=== PATIENT | male | born 1990 | race Caucasian/White ===

== ENCOUNTER 2017-01-01 15:59 | Emergency (ER) | payer SELFPAY ==
[~2017-01-01] VITALS: Ht 188 cm; Wt 75.0 kg
[2017-01-01 16:00] VITALS: BP 141/78; PULSE 104; RESP 15; TEMP 98.2; O2SAT 98
--- NOTE | 2017-01-01 16:17 | PD ---
HPI Chief Complaint: Psychiatric Symptoms Time Seen by Provider: 16:17 Travel History International Travel<30 days: No Contact w/Intl Traveler<30days: No Traveled to known affect area: No History of Present Illness HPI 26-year-old [place] Citizen male presents the emergency department with psychiatric symptoms. Patient arrives with his mother. Patient has a history of schizophrenia, and he is supposed be taking Remeron, Prozac, and Xanax. His mother states it is been noticed that he has not been taking his meds for the past week. Patient admits to hearing voices in his head. He denies any other specific complaints other than generalized muscle aches and pains. She has not been eating or sleeping according to his mother. He has no known drug allergies. PFSH Past Medical History Psychiatric: Yes Social History Alcohol Use: No Tobacco Use: No Substance Use: No Allergies-Medications (Allergen,Severity, Reaction): Coded Allergies: No Known Allergies (Unverified , 01/01/17) Reported Meds & Prescriptions Reported Meds & Active Scripts Active Reported Prozac (Fluoxetine HCl) 20 Mg Cap 20 Mg PO DAILY Xanax (Alprazolam) 1 Mg Tab 1 Mg PO Q6H PRN Seroquel (Quetiapine Fumarate) 100 Mg Tab 100 Mg PO BID Review of Systems ROS Limitations: Psychotic Except as stated in HPI: all other systems reviewed are Neg General / Constitutional: No: Fever Eyes: No: Visual changes HENT: No: Headaches Cardiovascular: No: Chest Pain or Discomfort Respiratory: No: Shortness of Breath Gastrointestinal: No: Abdominal Pain Genitourinary: No: Dysuria Musculoskeletal: No: Pain Skin: No Rash Neurologic: No: Weakness Psychiatric: No: Depression Endocrine: No: Polydipsia Hematologic/Lymphatic: No: Easy Bruising Physical Exam Exam Limitations: Psychotic Narrative GENERAL: Patient has poor eye contact, but is cooperative and directable. SKIN: Warm and dry. Normal color. Normal turgor. HEAD: Atraumatic. Normocephalic. EYES: Pupils equal and round. No scleral icterus. No injection or drainage. ENT: No nasal bleeding or discharge. Mucous membranes pink and moist. Pharynx is normal. Patient is noted to have poor dental health with tenderness on the right #32 tooth. No abscess noted. NECK: Trachea midline. Neck supple nontender. CARDIOVASCULAR: Regular rate and rhythm. RESPIRATORY: No accessory muscle use. Clear to auscultation. Breath sounds equal bilaterally. MUSCULOSKELETAL: Extremities without clubbing, cyanosis, or edema. No obvious deformities. NEUROLOGICAL: Awake and alert. No obvious cranial nerve deficits. Motor grossly within normal limits. Five out of 5 muscle strength in the arms and legs. Normal speech. PSYCHIATRIC: Appropriate mood and affect; insight and judgment normal. Data Data Last Documented VS Vital Signs Date Time Temp Pulse Resp B/P Pulse Ox O2 Delivery O2 Flow Rate FiO2 01/01/17 17:10 78 20 01/01/17 16:00 98.2 141/78 98 Orders Complete Blood Count With Diff (01/01/17 16:22) Comprehensive Metabolic Panel (01/01/17 16:22) Urinalysis - C+S If Indicated (01/01/17 16:22) Psych Screen (01/01/17 16:22) Drug Screen, Random Urine (01/01/17 16:22) Alcohol (Ethanol) (01/01/17 16:22) Lorazepam (Ativan) (01/01/17 16:30) Diet Regular Basic (01/01/17 Lunch) Chest, Single Ap (01/01/17 ) Amoxicil-Clavulanate (Augmentin) (01/01/17 18:30) Ibuprofen (Motrin) (01/01/17 18:30) Labs Laboratory Tests Test 01/01/17 01/01/17 16:40 16:45 White Blood Count 21.6 TH/MM3 Red Blood Count 4.45 MIL/MM3 Hemoglobin 13.7 GM/DL Hematocrit 40.7 % Mean Corpuscular Volume 91.5 FL Mean Corpuscular Hemoglobin 30.8 PG Mean Corpuscular Hemoglobin 33.7 % Concent Red Cell Distribution Width 13.5 % Platelet Count 275 TH/MM3 Mean Platelet Volume 8.5 FL Neutrophils (%) (Auto) 88.8 % Lymphocytes (%) (Auto) 4.1 % Monocytes (%) (Auto) 6.1 % Eosinophils (%) (Auto) 0.3 % Basophils (%) (Auto) 0.7 % Neutrophils # (Auto) 19.2 TH/MM3 Lymphocytes # (Auto) 0.9 TH/MM3 Monocytes # (Auto) 1.3 TH/MM3 Eosinophils # (Auto) 0.1 TH/MM3 Basophils # (Auto) 0.2 TH/MM3 CBC Comment DIFF FINAL Differential Comment Sodium Level 138 MEQ/L Potassium Level 4.1 MEQ/L Chloride Level 99 MEQ/L Carbon Dioxide Level 26.9 MEQ/L Anion Gap 12 MEQ/L Blood Urea Nitrogen 13 MG/DL Creatinine 1.28 MG/DL Estimat Glomerular Filtration 68 ML/MIN Rate Random Glucose 89 MG/DL Calcium Level 8.6 MG/DL Total Bilirubin 0.6 MG/DL Aspartate Amino Transf 21 U/L (AST/SGOT) Alanine Aminotransferase 21 U/L (ALT/SGPT) Alkaline Phosphatase 83 U/L Total Protein 7.7 GM/DL Albumin 4.1 GM/DL Ethyl Alcohol Level LESS THAN 3 MG/DL Urine Color YELLOW Urine Turbidity CLEAR Urine pH 6.0 Urine Specific [place] 1.016 Urine Protein TRACE mg/dL Urine Glucose (UA) NEG mg/dL Urine Ketones 40 mg/dL Urine Occult Blood NEG Urine Nitrite NEG Urine Bilirubin NEG Urine Urobilinogen 2.0 MG/DL Urine Leukocyte Esterase NEG Urine RBC 1 /hpf Urine WBC 1 /hpf Urine Hyaline Casts 1 /lpf Urine Mucus FEW /lpf Microscopic Urinalysis Comment CULT NOT INDICATED Urine Opiates Screen NEG Urine Barbiturates Screen NEG Urine Amphetamines Screen NEG Urine Benzodiazepines Screen NEG Urine Cocaine Screen NEG Urine Cannabinoids Screen POS MDM Medical Decision Making Medical Screen Exam Complete: Yes Emergency Medical Condition: Yes Differential Diagnosis Psychiatric symptoms. Noncompliance with medication. Auditory hallucinations. Narrative Course Patient is medically stable at time of exam. Psychiatric labs ordered per protocol. Meal ordered for the patient. Patient is given 1 mg lorazepam by mouth. Patient is given Augmentin 875 twice a day for 7 days. Patient is given ibuprofen 600 mg by mouth now. Patient is medically cleared for psychiatric evaluation. Diagnosis Primary Impression: Auditory hallucinations Additional Impressions: Medical clearance for psychiatric admission Dental infection Condition: Stable Enrrique Figueroa Jan 01, 2017 16:17
[2017-01-01] MEDS ORDERED: LORazepam 1 MG TAB PO ONE (16:30)
[2017-01-01 17:00] LABS: AUTOMATED NEUTROPHIL # 19.2 TH/MM3 (1.8-7.7); BASOPHIL # 0.2 TH/MM3 (0-0.2); BASOPHIL % 0.7 % (0.0-2.0); EOSINOPHIL # 0.1 TH/MM3 (0-0.4); EOSINOPHIL % 0.3 % (0.0-4.0); HEMATOCRIT 40.7 % (39.0-51.0); HEMO FLAGS DIFF FINAL; LYMPH % 4.1 % (9.0-44.0); LYMPHOCYTE # 0.9 TH/MM3 (1.0-4.8); MEAN CELL VOLUME 91.5 FL (80.0-100.0); MEAN CORPUSCULAR HEMOGLOBIN 30.8 PG (27.0-34.0); MEAN CORPUSCULAR HGB CONC 33.7 % (32.0-36.0); MONO % 6.1 % (0.0-8.0); NEUT % 88.8 % (16.0-70.0); PLATELET COUNT 275 TH/MM3 (150-450); RED BLOOD COUNT 4.45 MIL/MM3 (4.50-5.90); RED CELL DISTRIBUTION WIDTH 13.5 % (11.6-17.2); WHITE BLOOD COUNT 21.6 TH/MM3 (4.0-11.0)
[2017-01-01 17:09] LABS: BLOOD, URINE NEG (NEG); COMMENT (UR) CULT NOT INDICATED; CULTURE IF INDICATED CULT NOT INDICATED; GLUCOSE,URINE NEG (NEG); HYALINE CAST, URINE 1 /lpf (RARE); KETONE, URINE 40 mg/dL (NEG); MUCUS URINE FEW /lpf (OCC); NITRITE,URINE NEG (NEG); URINE COLOR YELLOW (YELLW/STRAW)
[2017-01-01 17:11] LABS: AMPHETAMINE, URINE NEG (NEG); BARBITURATES, URINE NEG (NEG); COCAINE, URINE NEG (NEG)
[2017-01-01 17:22] LABS: ALKALINE PHOSPHATASE 83 U/L (45-117); ALT (GPT) 21 U/L (12-78); ANION GAP 12 MEQ/L (5-15); AST (GOT) 21 U/L (15-37); BICARBONATE 26.9 MEQ/L (21.0-32.0); BLOOD UREA NITROGEN 13 MG/DL (7-18); CHLORIDE 99 MEQ/L (98-107); GLOMERULAR FILTRATION RATE 68 ML/MIN (>89); POTASSIUM 4.1 MEQ/L (3.5-5.1); SODIUM (NA) 138 MEQ/L (136-145); TOTAL BILIRUBIN ADULT 0.6 MG/DL (0.2-1.0)
[2017-01-01] MEDS ORDERED: PROZ20CA11 PO (17:56)
[2017-01-01] MEDS ORDERED: XANA1TAB2 PO (17:56)
[2017-01-01] MEDS ORDERED: SERO100T PO (17:56)
--- NOTE | 2017-01-01 18:12 | RADRPT ---
EXAM DATE/TIME: 01/01/2017 17:37 [facility] COMPARISON: No previous studies available for comparison. INDICATIONS : Palpitation MEDICAL HISTORY : None. SURGICAL HISTORY : None. ENCOUNTER: Initial ACUITY: 1 day PAIN SCORE: 0/10 LOCATION: Bilateral chest FINDINGS: A single view of the chest demonstrates the lungs to be symmetrically aerated without evidence of mas s, infiltrate or effusion. The cardiomediastinal contours are unremarkable. Osseous structures are intact. CONCLUSION: No acute disease. Jareth Hall MD on January 01, 2017 at 18:10 Board Certified Radiologist. This report was verified electronically.
[2017-01-01] MEDS ORDERED: IBUP-232 PO (18:24)
[2017-01-01] MEDS ORDERED: AUGM875T PO ×2 (18:24→19:57)
--- NOTE | 2017-01-01 18:24 | PD ---
Physical Exam Narrative General: No apparent distress, well appearing ENT: Posterior oropharyngx clear without exudate or erythema, poor dentition with pain located around tooth #32 without periapical abscess or tooth fracture ; no concurrent facial swelling or lymphadenopathy noted Neck: Neck is supple, no meningeal signs, trachea is midline Cardiovascular: Regular rate and rhythm Lungs: No increased respiratory effort noted, CTA bilaterally Neuro: Awake, motor and sensation grossly intact, normal speech Data Data Last Documented VS Vital Signs Date Time Temp Pulse Resp B/P Pulse Ox O2 Delivery O2 Flow Rate FiO2 01/01/17 17:10 78 20 01/01/17 16:00 98.2 141/78 98 Orders Complete Blood Count With Diff (01/01/17 16:22) Comprehensive Metabolic Panel (01/01/17 16:22) Urinalysis - C+S If Indicated (01/01/17 16:22) Psych Screen (01/01/17 16:22) Drug Screen, Random Urine (01/01/17 16:22) Alcohol (Ethanol) (01/01/17 16:22) Lorazepam (Ativan) (01/01/17 16:30) Diet Regular Basic (01/01/17 Lunch) Chest, Single Ap (01/01/17 ) Amoxicil-Clavulanate (Augmentin) (01/01/17 18:30) Ibuprofen (Motrin) (01/01/17 18:30) Amoxicil-Clavulanate (Augmentin) (01/02/17 07:00) Labs Laboratory Tests Test 01/01/17 01/01/17 16:40 16:45 White Blood Count 21.6 TH/MM3 Red Blood Count 4.45 MIL/MM3 Hemoglobin 13.7 GM/DL Hematocrit 40.7 % Mean Corpuscular Volume 91.5 FL Mean Corpuscular Hemoglobin 30.8 PG Mean Corpuscular Hemoglobin 33.7 % Concent Red Cell Distribution Width 13.5 % Platelet Count 275 TH/MM3 Mean Platelet Volume 8.5 FL Neutrophils (%) (Auto) 88.8 % Lymphocytes (%) (Auto) 4.1 % Monocytes (%) (Auto) 6.1 % Eosinophils (%) (Auto) 0.3 % Basophils (%) (Auto) 0.7 % Neutrophils # (Auto) 19.2 TH/MM3 Lymphocytes # (Auto) 0.9 TH/MM3 Monocytes # (Auto) 1.3 TH/MM3 Eosinophils # (Auto) 0.1 TH/MM3 Basophils # (Auto) 0.2 TH/MM3 CBC Comment DIFF FINAL Differential Comment Sodium Level 138 MEQ/L Potassium Level 4.1 MEQ/L Chloride Level 99 MEQ/L Carbon Dioxide Level 26.9 MEQ/L Anion Gap 12 MEQ/L Blood Urea Nitrogen 13 MG/DL Creatinine 1.28 MG/DL Estimat Glomerular Filtration 68 ML/MIN Rate Random Glucose 89 MG/DL Calcium Level 8.6 MG/DL Total Bilirubin 0.6 MG/DL Aspartate Amino Transf 21 U/L (AST/SGOT) Alanine Aminotransferase 21 U/L (ALT/SGPT) Alkaline Phosphatase 83 U/L Total Protein 7.7 GM/DL Albumin 4.1 GM/DL Ethyl Alcohol Level LESS THAN 3 MG/DL Urine Color YELLOW Urine Turbidity CLEAR Urine pH 6.0 Urine Specific [place] 1.016 Urine Protein TRACE mg/dL Urine Glucose (UA) NEG mg/dL Urine Ketones 40 mg/dL Urine Occult Blood NEG Urine Nitrite NEG Urine Bilirubin NEG Urine Urobilinogen 2.0 MG/DL Urine Leukocyte Esterase NEG Urine RBC 1 /hpf Urine WBC 1 /hpf Urine Hyaline Casts 1 /lpf Urine Mucus FEW /lpf Microscopic Urinalysis Comment CULT NOT INDICATED Urine Opiates Screen NEG Urine Barbiturates Screen NEG Urine Amphetamines Screen NEG Urine Benzodiazepines Screen NEG Urine Cocaine Screen NEG Urine Cannabinoids Screen POS MDM Supervised Visit with [facility]: Yes Interpretation(s) CBC & BMP Diagram 01/01/17 16:40 Last 24 hours Impressions Chest X-Ray 01/01/17 0000 Signed Impressions: Service Date/Time: Sunday, January 01, 2017 17:37 - CONCLUSION: No acute disease. Jareth Hall MD Narrative Course I, Dr. hernandes, have reviewed the advance practice practitioner's documentation and am in agreement, met with the patient face to face, made the diagnosis, and the medical decision making was done by me. *My assessment and Findings: 26 y/o male presents with depression and auditory hallucinations off his medications. He has an elevated white count and source is likely from right lower tooth pain around tooth #32 and he will be placed on antibiotic coverage for this. He has no concurrent facial swelling or fever and there is no drainable abscess. Oral antibiotics are sufficient and he'll be medically cleared. Diagnosis Primary Impression: Auditory hallucinations Additional Impressions: Medical clearance for psychiatric admission Dental infection Condition: Stable Bertha Hernandes MD Jan 01, 2017 18:23 Additional Impressions: Medical clearance for psychiatric admission Dental infection Condition: Stable Bertha Hernandes MD Jan 01, 2017 18:23
[2017-01-01] MEDS ORDERED: AMOXICILLIN/CLAVULANATE K 875 MG TAB PO ONE (18:30)
[2017-01-01] MEDS ORDERED: IBUPROFEN 600 MG TAB PO ONE (18:30)
[2017-01-01 18:48] VITALS: BP 132/74; PULSE 92; RESP 18; O2SAT 98
[2017-01-01 20:02] VITALS: BP 127/71; PULSE 77; RESP 18; TEMP 98.9; O2SAT 98
[2017-01-01 22:52] VITALS: BP 128/71; PULSE 77; RESP 19; O2SAT 96
[2017-01-02 03:08] VITALS: BP 139/83; PULSE 53; RESP 18; O2SAT 96
[2017-01-02] MEDS ORDERED: OLANZapine 10 MG TAB PO ONE (03:15)
[2017-01-02 06:31] VITALS: BP 126/64; PULSE 56; RESP 19; O2SAT 99
[2017-01-02] MEDS: AMOXICILLIN/CLAVULANATE K 875 MG TAB PO SCH ×2 (08:30→09:00)
[2017-01-02 13:34] VITALS: BP 119/76; PULSE 78; RESP 18; O2SAT 98
--- NOTE | 2017-01-02 14:31 | PD ---
History of Present Illness Chief Complaint: Psychiatric Symptoms Time Seen by Provider: 14:30 Travel History International Travel<30 Days: No Contact w/Intl Traveler<30days: No Known affected area: No Legal Status Legal Status: Voluntary History of Present Illness: 26-year-old male with a history of schizophrenia that has been prescribed Seroquel 300 mg per day and antidepressant medicine. He has been out of his Seroquel and is becoming more hyper taoism. He is not suicidal or homicidal. He does have a urge to proselytize to his girlfriend and others around him. This annoys the people with whom he lives and they told him to calm here for evaluation. Patient does not meet [place] act criteria at this time because he is not suicidal or homicidal and he does have a place to go. This physician is prescribing his Seroquel and he will be sent home for follow up in the land that [facility]. Patient is agreeable to this plan. PFSH Past Medical History Medical History: Denies Significant Hx Depression: Yes Psychiatric: Yes Psychiatric History Psychiatric History Hx Psychiatric Treatment: HX: SCHIZOPHRENIA History of Inpatient Treatment: Yes Social History Hx Alcohol Use: No Hx Tobacco Use: No Hx Substance Use: No Allergies-Medications (Allergen,Severity, Reaction): Coded Allergies: No Known Allergies (Unverified , 01/01/17) Reported Meds & Prescriptions Reported Meds & Active Scripts Active Ibuprofen 600 Mg Tab 600 Mg PO Q6H PRN Reported Augmentin (Amoxicillin-Clavulanate) 875-125 mg Tab 875 Mg PO BID not for use in CrCl <30 ml/min. Prozac (Fluoxetine HCl) 20 Mg Cap 20 Mg PO DAILY Xanax (Alprazolam) 1 Mg Tab 1 Mg PO Q6H PRN Seroquel (Quetiapine Fumarate) 100 Mg Tab 100 Mg PO BID Review of Systems ROS Limitations: Clinical Condition Except as stated in HPI: all other systems reviewed are Neg Exam Exam Limitations: Clinical Condition Alert: Yes [place]: Person, Place, Date, Situation Mood: Calm Affect: Restricted Speech: Clear Eye Contact: Indirect Memory Intact: Immediate, Recent, Remote Delusions: Yes Delusion Type: Other Insight/Judgement Impaired but adequate. MDM Medical Decision Making Medical Record Reviewed: Yes Assessment/Plan Although the patient appears to have some hyper taoism convictions and possibly delusions, he is calm and pleasant and cooperative. He denies any suicidal or homicidal ideation. He is willing to get back on his medicine and he is willing to go to outpatient treatment follow up. He is not [place] actable in my opinion and does not meet criteria for inpatient treatment at this time. Orders Complete Blood Count With Diff (01/01/17 16:22) Comprehensive Metabolic Panel (01/01/17 16:22) Urinalysis - C+S If Indicated (01/01/17 16:22) Psych Screen (01/01/17 16:22) Drug Screen, Random Urine (01/01/17 16:22) Alcohol (Ethanol) (01/01/17 16:22) Lorazepam (Ativan) (01/01/17 16:30) Diet Regular Basic (01/01/17 Lunch) Chest, Single Ap (01/01/17 ) Amoxicil-Clavulanate (Augmentin) (01/01/17 18:30) Ibuprofen (Motrin) (01/01/17 18:30) Amoxicil-Clavulanate (Augmentin) (01/02/17 07:00) Diet Regular Basic (01/02/17 Breakfast) Olanzapine (Zyprexa) (01/02/17 03:15) Diet Regular Basic (01/02/17 Lunch) Diet Regular Basic (01/02/17 Dinner) Results Vital Signs Date Time Temp Pulse Resp B/P Pulse Ox O2 Delivery O2 Flow Rate FiO2 01/02/17 13:34 78 18 119/76 98 Room Air 01/02/17 06:31 56 19 126/64 99 01/02/17 03:08 53 18 139/83 96 Room Air 01/01/17 22:52 77 19 128/71 96 Room Air 01/01/17 20:02 98.9 77 18 127/71 98 Room Air 01/01/17 18:48 92 18 132/74 98 Room Air 01/01/17 17:10 78 20 01/01/17 16:00 98.2 104 15 141/78 98 Laboratory Tests Test 01/01/17 01/01/17 16:40 16:45 White Blood Count 21.6 Red Blood Count 4.45 Hemoglobin 13.7 Hematocrit 40.7 Mean Corpuscular Volume 91.5 Mean Corpuscular Hemoglobin 30.8 Mean Corpuscular Hemoglobin 33.7 Concent Red Cell Distribution Width 13.5 Platelet Count 275 Mean Platelet Volume 8.5 Neutrophils (%) (Auto) 88.8 Lymphocytes (%) (Auto) 4.1 Monocytes (%) (Auto) 6.1 Eosinophils (%) (Auto) 0.3 Basophils (%) (Auto) 0.7 Neutrophils # (Auto) 19.2 Lymphocytes # (Auto) 0.9 Monocytes # (Auto) 1.3 Eosinophils # (Auto) 0.1 Basophils # (Auto) 0.2 CBC Comment DIFF FINAL Differential Comment Sodium Level 138 Potassium Level 4.1 Chloride Level 99 Carbon Dioxide Level 26.9 Anion Gap 12 Blood Urea Nitrogen 13 Creatinine 1.28 Estimat Glomerular Filtration 68 Rate Random Glucose 89 Calcium Level 8.6 Total Bilirubin 0.6 Aspartate Amino Transf 21 (AST/SGOT) Alanine Aminotransferase 21 (ALT/SGPT) Alkaline Phosphatase 83 Total Protein 7.7 Albumin 4.1 Ethyl Alcohol Level LESS THAN 3 Urine Color YELLOW Urine Turbidity CLEAR Urine pH 6.0 Urine Specific [place] 1.016 Urine Protein TRACE Urine Glucose (UA) NEG Urine Ketones 40 Urine Occult Blood NEG Urine Nitrite NEG Urine Bilirubin NEG Urine Urobilinogen 2.0 Urine Leukocyte Esterase NEG Urine RBC 1 Urine WBC 1 Urine Hyaline Casts 1 Urine Mucus FEW Microscopic Urinalysis Comment CULT NOT INDICATED Urine Opiates Screen NEG Urine Barbiturates Screen NEG Urine Amphetamines Screen NEG Urine Benzodiazepines Screen NEG Urine Cocaine Screen NEG Urine Cannabinoids Screen POS Diagnosis Primary Impression: Schizophrenia Prescriptions Ibuprofen 600 Mg [id number] Mg PO Q6H PRN (Pain/Inflammation) #40 TAB Prov:Bertha Patrick MD 01/01/17 Condition: Stable Problem Qualifiers Primary Impression: Schizophrenia Qualified Code: F20.9 - Schizophrenia, unspecified type Doe Olvera MD Jan 02, 2017 14:31
[2017-01-02] MEDS ORDERED: SERO300T PO (14:32)
== END 2017-01-02 17:48 | disposition home or self-care (01) ==
LOC: NEPC 15:59 → NEPJ 01-02 17:48
DX: F20.9 Schizophrenia, unspecified (principal); K04.7 Periapical abscess without sinus
CPT/HCPCS: 71010; 80053; 80307; 81001; 85025; 99283